=== PATIENT | male | born 2000 | race Two or more races ===

== ENCOUNTER 2025-06-11 20:29 | Emergency (ER) | payer MEDICAID, OTHER ==
[~2025-06-11] VITALS: Ht 177.8 cm; Wt 60.0 kg
[2025-06-11 22:41] VITALS: BP 120/80; PULSE 75; RESP 16; TEMP 97.4; O2SAT 100
--- NOTE | 2025-06-11 23:04 | ED.PDOC ---
History of Present Illness(SKN HPI Comments 25 year old male presents to ER for wound check. Patient states he sustained an abrasion to left hand after accidentally "scraping" his left hand against a metal gate 2 hours prior to arrival to ER and presents to ER for wound check. Patient denies any pain and is unsure when his last tetanus shot was. Patient also notes that he's been off his bipolar medications for "1 year due to spiritual reasons", denying any SI/HI/hallucinations or acute psychiatric symptoms and notes he's unsure the name/dosage of his prior bipolar medication. Patient presents to ER alert and oriented x4, with steady gait, in no distress with vitals stable and endorses no further symptoms/complaints Chief Complaint: Laceration Time Seen by MD: 21:07 Primary Care Provider: UNKNOWN History of Present Illness: Nurses Notes, Medications, Allergies Allergies: Coded Allergies: NO KNOWN ALLERGIES (Unverified , 06/11/25) Information Source: Patient Mode of Arrival: EMS Tetanus: Unknown Past Medical History Past Medical History (Other): Bipolar Surgical History: Denies all surgeries Family History Family History: Unknown Social History Smoker: Non-Smoker Alcohol: Denies ETOH Use Drugs: Denies Drug Use Lives In: Home Constitutional: denies: chills, diaphoresis, fatigue, fever, malaise, sweats, weakness, others EENTM: denies: blurred vision, double vision, ear bleeding, ear discharge, ear drainage, ear pain, ear ringing, eye pain, eye redness, hearing loss, mouth pain, mouth swelling, nasal discharge, nose bleeding, nose congestion, nose pain, photophobia, tearing, throat pain, throat swelling, voice changes, others Respiratory: denies: cough, hemoptysis, orthopnea, SOB at rest, shortness of breath, SOB with excertion, stridor, wheezing, others Cardiovascular: denies: chest pain, dizzy spells, diaphoresis, Dyspnea on exertion, edema, irregular heart beat, left arm pain, lightheadedness, palpitations, PND, syncope, others Gastrointestinal: denies: abdomen distended, abdominal pain, blood streaked bowels, constipated, diarrhea, dysphagia, difficulty swallowing, hematemesis, melena, nausea, poor appetite, poor fluid intake, rectal bleeding, rectal pain, vomiting, others Genitourinary: denies: burning, dysuria, flank pain, frequency, hematuria, incontinence, penile discharge, penile sore, pain, testicle pain, testicle swelling, urgency, others Neurological: denies: dizziness, fainting, headache, left sided numbness, left sided weakness, numbness, paresthesia, pre-existing deficit, right sided numbness, right sided weakness, seizure, speech problems, tingling, tremors, weakness, others Musculoskeletal: denies: back pain, gout, joint pain, joint swelling, muscle pain, muscle stiffness, neck pain, others Integumetry: reports: others (As stated in HPI) Allergic/Immunocompromised: denies: Difficulty Healing, Frequent Infections, Hives, Itching, others Hematologic/Lymphatic: denies: anemia, blood clots, easy bleeding, easy bruising, swollen glands, others Endocrine: denies: excessive hunger, excessive sweating, excessive thirst, excessive urination, flushing, intolerance to cold, intolerance to heat, unexplained weight gain, unexplained weight loss, others Psychiatric: reports: others (As stated in HPI) Physical Exam General Appearance: No Apparent Distress, Normal HEENT: Normal ENT Inspection, PERRL/EOMI, Pharynx Normal, TMs Normal Neck: Full Range of Motion, Non-Tender, Normal, Normal Inspection Respiratory: Chest Non-Tender, Lungs Clear, No Accessory Muscle Use, No Respiratory Distress, Normal Breath Sounds Cardiovascular: No Murmur, No Gallop, Regular Rate/Rhythm Breast Exam: Deferred Gastrointestinal: NOT DONE Genitalia: Deferred Pelvic: Deferred Rectal: Deferred Extremities: Normal capillary refill, Normal range of motion Neurologic: Alert, jack of all trades II-XII nml as Tested, No Motor Deficits, Normal Affect, Normal Mood, No Sensory Deficits Cerebellar Function: Normal Reflexes: Normal Skin: Dry, Normal Color, Warm, Other (2 abrasions <5 cm in size noted to dorsal surface of left hand without bleeding. No bony tenderness/signs of infection noted. Patient able to fully move all fingers left hand. Pulses intact) Peripheral Pulses: 2+ Radial (R), 2+ Radial (L), 2+ Brachial (R), 2+ Brachial (L) Lymphatic: No Adenopathy Was a procedure done? Was a procedure done?: No Sedation Sedation?: No Differential Diagnosis (INTG) Differential Diagnosis: Laceration, Open Fracture, Puncture Wound, Retained Foreign Body, Other (SI/HI) X-Ray, Labs, Meds, VS Vital Signs Date Time Temp Pulse Resp B/P (MAP) Pulse Ox O2 Delivery O2 Flow Rate FiO2 06/11/25 22:41 97.4 75 16 120/80 (93) 100 97.4 06/11/25 20:36 Room Air* 0 21 06/11/25 20:36 97.7 77 12 109/73 (85) 99 97.7 06/11/25 20:29 97.8 80 18 120/71 100 97.8 Tdap 0.5 mL IM ordered Patient denies SI/HI or any acute psychiatric symptoms Wound care/cleaning discussed and advised Patient provided information with regards to local crisis center and was advised to f/u as soon as possible with regards to medication refill of his bipolar medication Advised to f/u with PCP and psychiatrist in 1-2 days Patient alert and oriented x4 prior to discharge. Patient verbalized understanding and agreeable with current plan of care Advised to return to ER immediately if symptoms worsen Time of 1ST Reevaluation: 22:44 Reevaluation 1ST: N/A Patient Education/Counseling: Diagnosis, Treatment, Prognosis, Need For Follow Up Family Education/Counseling: No Family Present SEPSIS Sepsis Screen Date sepsis recognized/suspect: Jun 11, 2025 Time Sepsis recognized/suspect: 2042 Recent Procedure: No On Antibiotic Therapy: No Respiratory Rate >20: No Heart Rate >90: No Temp<36 C (96.8 F) or >38.3 C: No SBP <90 or MAP <65 mmHG: No New Acute Mental Status Change: No Is the patient on CPAP, BIPAP,: No Physician Orders Tetanus [id number] (Boostrix (06/11/25 23:15) Vital Signs Date Time Temp Pulse Resp B/P (MAP) Pulse Ox O2 Delivery O2 Flow Rate FiO2 06/11/25 22:41 97.4 75 16 120/80 (93) 100 97.4 06/11/25 20:36 Room Air* 0 21 06/11/25 20:36 97.7 77 12 109/73 (85) 99 97.7 06/11/25 20:29 97.8 80 18 120/71 100 97.8 Departure 1 Departure Time of Disposition: 23:03 Impression: Primary Impression: Abrasion of hand, left Qualified Codes: S60.512A - Abrasion of left hand, initial encounter Disposition: HOME / SELF CARE / HOMELESS Condition: Stable Discharged With: Self Critical Care Note Critical Care Time?: No Stability Stability form required: No Heart Score Heart Score: Heart Score Response (Comments) Value History N/A 0 EKG N/A 0 Age N/A 0 Risk Factors N/A 0 Troponin N/A 0 Total 0 PARAG SIBLEY Jun 11, 2025 23:04
[2025-06-11] MEDS: TETANUS-DIPTH-ACEL PERTUSSIS 0.5ML SYR Tdap IM ONE (23:06)
== END 2025-06-11 23:24 | disposition home or self-care (01) ==
LOC: ER 20:29 → EDBD 20:29 → ER 23:24
DX: S60.512A Abrasion of left hand, initial encounter (principal); Z79.899 Other long term (current) drug therapy; X58.XXXA Exposure to other specified factors, initial encounter; Y93.89 Activity, other specified; Y92.89 Other specified places as the place of occurrence of the external cause; Y99.8 Other external cause status
CPT/HCPCS: 82947; 90471; 90715

== ENCOUNTER 2025-06-12 07:46 | Emergency (ER) | payer MEDICAID, OTHER ==
[~2025-06-12] VITALS: Ht 172.7 cm; Wt 67.4 kg
[2025-06-12 07:47] VITALS: BP 126/79; PULSE 71; RESP 18; TEMP 97.2; O2SAT 99
== END 2025-06-12 08:42 | disposition left against medical advice (07) ==
LOC: ER 07:46
DX: Z00.00 Encounter for general adult medical examination without abnormal findings (principal); Z53.21 Procedure and treatment not carried out due to patient leaving prior to being seen by health care provider